=== PATIENT | male | born 1970 | race Caucasian/White ===

== ENCOUNTER → 2018-02-08 16:40 | Outpatient (CLI) | payer OTHER, MEDICAID, SELFPAY ==
--- NOTE | 2018-02-08 16:44 | DI.RAD.S_ITS ---
PROCEDURE: XR FINGER LT MIN 2V INDICATIONS: Injury to 3rd finger L hand 3 months ago/pain MCP-PIP TECHNIQUE: AP hand, 2 views of the third finger(s) acquired. COMPARISON: None. FINDINGS: Bones: There is a slightly subluxed appearance of the third DIP joint. No definitive fracture is identified. Soft tissues: No suspicious soft tissue calcifications. IMPRESSION: Slightly subluxed third DIP joint. No visualized acute fracture or dislocation. However, if clinical concern and/or pain persist, short interval imaging followup in 7-10 days is recommended, as occult injury cannot be definitively excluded. Dictated by: Carmen Askew M.D. on 02/08/2018 at 17:15 Approved by: Carmen Askew M.D. on 02/08/2018 at 17:16
== END ==
PROVIDERS: PCP Physician Assistant; Visit Provider Physician Assistant
DX: M79.645 Pain in left finger(s) (principal); S69.90XA Unspecified injury of unspecified wrist, hand and finger(s), initial encounter
CPT/HCPCS: 73140

== ENCOUNTER 2019-02-06 17:48 | Emergency (ER) | payer OTHER, MEDICAID, SELFPAY ==
[2019-02-06 18:05] VITALS: BP 119/77; PULSE 68; RESP 15; TEMP 37.1; O2SAT 100; BMI 21.7
[2019-02-06 19:07] VITALS: BP 118/79; PULSE 59; RESP 10; O2SAT 100
[2019-02-06 19:52] LABS: Add Manual Diff / Slide Review NO; Basophils Absolute Auto 0 /uL (0-100); Basophils Percent Auto 0.5 % (0-2); Eosinophils Absolute Auto 300 /uL (0-450); Eosinophils Percent Auto 4.2 % (2-4); Hematocrit 42.4 % (41-53); Lymphocytes Absolute Auto 2800 /uL (1100-4500); Lymphocytes Percent Auto 45.1 % (25-40); Mean Corpuscular HGB Conc 35.3 % (30-36); Mean Corpuscular Hemoglobin 31.7 PG (26-34); Mean Corpuscular Volume 89.8 fL (80-100); Monocytes Absolute Auto 600 /uL (0-900); Monocytes Percent Auto 9.5 % (3-14); Neutrophils Absolute Auto 2500 /uL (1500-7000); Neutrophils Percent Auto 40.7 % (50-75); Platelet Count 199 X10^3/uL (150-400); Red Blood Cell Count 4.72 X10^6/uL (4.5-5.9); Red Cell Distribution Width 13.1 % (11.6-14.8); White Blood Cell Count 6.2 X10^3/uL (4.5-11.0)
[2019-02-06 20:00] LABS: Alanine Aminotransferase 15 IU/L (21-72); Albumin 4.3 g/dL (3.5-5.0); Albumin Globulin Ratio 1.3 (1.0-2.8); Alkaline Phosphatase 47 U/L (38-126); Aspartate Aminotransferase 22 IU/L (17-59); BUN Creatinine Ratio 18.9 (6-22); Bilirubin Total 0.5 mg/dL (0.2-1.3); Blood Urea Nitrogen 17 mg/dL (9-20); Calcium 9.1 mg/dL (8.4-10.2); Carbon Dioxide 28 mmol/L (22-32); Chloride 104 mmol/L (98-107); Estimated Glomerular Filt Rate > 60.0 mL/min (>60); Globulin 3.3 g/dL (1.7-4.1); Glucose 88 mg/dL (70-100); HEMOLYSIS < 15 (0-50); Lipase 100 U/L (23-300); Potassium 4.1 mmol/L (3.4-5.1); Sodium 139 mmol/L (137-145); Total Protein 7.6 g/dL (6.3-8.2)
[2019-02-06 20:36] LABS: Bacteria Urine None Seen; RBC Urine None Seen (0-5/HPF)
[2019-02-06 20:41] LABS: Appearance Urine UA CLEAR; Bilirubin Urine UA NEGATIVE (NEGATIVE); Color Urine UA YELLOW; Glucose Urine UA NEGATIVE (Negative); Ketones Urine UA NEGATIVE (NEGATIVE); Leukocyte Esterase Urine UA NEGATIVE (NEGATIVE); Nitrite Urine UA NEGATIVE (Negative); Occult Blood Urine UA NEGATIVE (Negative); Protein Urine UA NEGATIVE (Negative); Specific Gravity Urine UA 1.015 (1.000-1.035)
--- NOTE | 2019-02-06 20:41 | ED.WEAKNESS ---
HPI - Weakness <LAURA Brandt - Last Filed: 02/06/19 21:10> General Chief complaint: Weakness Stated complaint: Ulcers,diabetes,Multiple complaints Time Seen by Provider: 02/06/19 18:14 Source: patient Mode of arrival: Ambulatory Limitations: no limitations History of Present Illness HPI Narrative: The patient is a 48-year-old male current smoker who presents complaining of vague, longstanding medical complaints. He states he has been increasingly tired over the past 6 months. States that when he is carbohydrates, he gets tired. He states this happened yesterday with pizza. He is unable to give a precipitating factor for his emergency department visit other than fatigue, but states that it has not increased over the past few days. He does note emotional stressors at home, including having many dogs and recent separation with his . He denies any nausea vomiting or diarrhea. He denies any chest pain or shortness of breath. He denies any thoughts of hurting himself or anybody else. He denies any concerns about depression. He does state that he is concerned about diabetes as his family members recently diagnosed. He has not followed up with primary care provider. Related Data Allergies Allergy/AdvReac Type Severity Reaction Status Date / Time No Known Allergies Allergy Uncoded 11/09/18 14:54 Review of Systems <LAURA Brandt - Last Filed: 02/06/19 21:10> Review of Systems Narrative: GENERAL: See HPI HEENT: Denies sinus pain, ear pain, sore throat, difficulty swallowing, dizziness. RESPIRATORY: Denies dyspnea, cough, wheezing, hemoptysis, sputum. CARDIOVASCULAR: Denies chest pain, palpitations, orthopnea, edema, GASTROINTESTINAL: Denies nausea, vomiting, abdominal pain, diarrhea, constipation, melena. : Denies dysuria, frequency, incontinence, hematuria, urinary retention. MUSCULOSKELETAL: denies weakness, joint pain, or bony pain SKIN: Denies rash, skin lesions, or other NEUROLOGIC: Denies weakness, headache, numbness, change in speech, confusion, seizures, incoordination. PSYCHIATRIC: No concerning psychosocial issues. 12 point review of systems is negative except for those stated above PFSH <LAURA Brandt - Last Filed: 02/06/19 21:10> Medical History No pertinent past medical history (Resolved) Surgical History No history of previous surgery (Resolved) Family History (Updated 02/05/18 @ 12:52 by Henny Pearce LPN) Mother Cancer Social History Smoking Status: Current every day smoker Tobacco: How many years used: 10 second hand exposure: No alcohol intake: current (a beer or two every couple of months.) substance use type: does not use Family History Mother Cancer Social History Smoking Status: Current every day smoker Tobacco: How many years used: 10 second hand exposure: No alcohol intake: current (a beer or two every couple of months.) substance use type: does not use Exam <RYAN Brandt - Last Filed: 02/06/19 21:10> Narrative Exam Narrative: GENERAL: Thin female in no acute distress HEAD: Atraumatic. Normocephalic. No temporal or scalp tenderness. EYES: Pupils equal round and reactive. Extraocular motions intact. No scleral icterus. No injection or drainage. ENT: Nose without bleeding, purulent drainage or septal hematoma. Throat without erythema, tonsillar hypertrophy or exudate. Uvula midline. Airway patent. NECK: Trachea midline. No JVD or lymphadenopathy. Supple, nontender, no meningeal signs. CARDIOVASCULAR: Regular rate and rhythm without murmurs, gallops, or rubs. RESPIRATORY: Clear to auscultation. Breath sounds equal bilaterally. No wheezes, rales, or rhonchi. No cough. No increased respiratory effort. No accessory muscle use. GASTROINTESTINAL: Abdomen soft, non-tender, nondistended. No hepato-splenomegaly, or palpable masses. No guarding. Active bowel sounds all 4 quadrants. EXTREMITIES: No clubbing, cyanosis, or edema. No joint tenderness, effusion, or edema noted. BACK: Nontender without deformity or crepitance. No flank tenderness. NEURO: AOx3. Flat affect. SKIN: No rash or erythema. Initial Vital Signs Initial Vital Signs: Vital Signs Temperature 98.7 F 02/06/19 18:05 Pulse Rate 68 02/06/19 18:05 Respiratory Rate 15 02/06/19 18:05 Blood Pressure 119/77 02/06/19 18:05 Pulse Oximetry 100 02/06/19 18:05 <Scott Rosales DO - Last Filed: 02/06/19 21:50> Initial Vital Signs Initial Vital Signs: Vital Signs Temperature 98.7 F 02/06/19 18:05 Pulse Rate 68 02/06/19 18:05 Respiratory Rate 15 02/06/19 18:05 Blood Pressure 119/77 02/06/19 18:05 Pulse Oximetry 100 02/06/19 18:05 Course <DONNIE Brandt-BC - Last Filed: 02/06/19 21:10> Orders Ordered: ED Orders 02/06/19 19:45 Complete Blood Count AUTO DIFF Stat Comprehensive Metabolic Panel Stat Lipase Stat 02/06/19 20:30 Urinalysis and Microscopic Stat Urine Drug Screen, Rapid Stat Vital Signs Vital signs: Vital Signs - 8 hr 02/06/19 18:05 02/06/19 19:07 02/06/19 21:00 Temperature 98.7 F Pulse Rate 68 59 L 67 Respiratory Rate 15 10 L Blood Pressure 119/77 Blood Pressure [Left Arm] 118/79 115/74 Pulse Oximetry 100 100 99 02/06/19 21:33 Temperature Pulse Rate 58 L Respiratory Rate 14 Blood Pressure 103/80 Blood Pressure [Left Arm] Pulse Oximetry 98 <Scott Rosales DO - Last Filed: 02/06/19 21:50> Orders Ordered: ED Orders 02/06/19 19:45 Complete Blood Count AUTO DIFF Stat Comprehensive Metabolic Panel Stat Lipase Stat 02/06/19 20:30 Urinalysis and Microscopic Stat Urine Drug Screen, Rapid Stat Vital Signs Vital signs: Vital Signs - 8 hr 02/06/19 18:05 02/06/19 19:07 02/06/19 21:00 Temperature 98.7 F Pulse Rate 68 59 L 67 Respiratory Rate 15 10 L Blood Pressure 119/77 Blood Pressure [Left Arm] 118/79 115/74 Pulse Oximetry 100 100 99 02/06/19 21:33 Temperature Pulse Rate 58 L Respiratory Rate 14 Blood Pressure 103/80 Blood Pressure [Left Arm] Pulse Oximetry 98 MDM - Weakness <DONNIE Brandt-BC - Last Filed: 02/06/19 21:10> Lab Data Result diagrams: 02/06/19 19:45 02/06/19 19:45 Labs: Lab Results 02/06/19 02/06/19 02/06/19 Range/Units 19:45 19:45 20:30 WBC 6.2 (4.5-11.0) X10^3/uL RBC 4.72 (4.5-5.9) X10^6/uL Hgb 15.0 (13.5-17.5) g/dL Hct 42.4 (41-53) % MCV 89.8 (80-100) fL MCH 31.7 (26-34) PG MCHC 35.3 (30-36) % RDW 13.1 (11.6-14.8) % Plt Count 199 (150-400) X10^3/uL Neut % (Auto) 40.7 L (50-75) % Lymph % (Auto) 45.1 H (25-40) % [place] % (Auto) 9.5 (3-14) % Eos % (Auto) 4.2 H (2-4) % Baso % (Auto) 0.5 (0-2) % Neut # (Auto) 2500 (7997-5314) /uL Lymph # (Auto) 2800 (6962-0579) /uL [place] # (Auto) 600 (0-900) /uL Eos # (Auto) 300 (0-450) /uL Baso # (Auto) 0 (0-100) /uL Sodium 139 (137-145) mmol/L Potassium 4.1 (3.4-5.1) mmol/L Chloride 104 (98-107) mmol/L Carbon Dioxide 28 (22-32) mmol/L BUN 17 (9-20) mg/dL Creatinine 0.90 (0.66-1.25) mg/dL Estimated GFR > 60.0 (>60) mL/min BUN/Creatinine Ratio 18.9 (6-22) Glucose 88 (70-100) mg/dL Calcium 9.1 (8.4-10.2) mg/dL Total Bilirubin 0.5 (0.2-1.3) mg/dL AST 22 (17-59) IU/L ALT 15 L (21-72) IU/L Alkaline Phosphatase 47 (38-126) U/L Total Protein 7.6 (6.3-8.2) g/dL Albumin 4.3 (3.5-5.0) g/dL Globulin 3.3 (1.7-4.1) g/dL Albumin/Globulin Ratio 1.3 (1.0-2.8) Lipase 100 (23-300) U/L Urine Color Yellow Urine Appearance Clear Urine pH 7.0 (4.5-8.0) Ur Specific [place] 1.015 (1.000-1.035) Urine Protein Negative (Negative) Urine Glucose (UA) Negative (Negative) g/dL Urine Ketones Negative (NEGATIVE) Urine Occult Blood Negative (Negative) Urine Nitrate Negative (Negative) Urine Bilirubin Negative (NEGATIVE) Urine Urobilinogen 1.0 (0.2) E.U./dL Ur Leukocyte Esterase Negative (NEGATIVE) Urine RBC None seen (0-5/HPF) Urine WBC 0-1/hpf (0-5/HPF) Ur Squamous Epith Cells 0-1 /hpf (0-5/HPF) Amorphous Sediment 1+ Urine Bacteria None seen (None) Urine Mucus 2+ H (Negative) Ur Culture Indicated? Cult not indicated Urine Opiates Screen (Negative) Ur Oxycodone Screen (Negative) Urine Methadone Screen (Negative) Ur Barbiturates Screen (Negative) U Tricyclic Antidepress (Negative) Ur Phencyclidine Scrn (Negative) Ur Amphetamines Screen (Negative) U Methamphetamines Scrn (Negative) Ur MDMA Scrn (Ecstasy) (Negative) U Benzodiazepines Scrn (Negative) Urine Cocaine Screen (Negative) U Marijuana (THC) Screen (Negative) 02/06/19 Range/Units 20:30 WBC (4.5-11.0) X10^3/uL RBC (4.5-5.9) X10^6/uL Hgb (13.5-17.5) g/dL Hct (41-53) % MCV (80-100) fL MCH (26-34) PG MCHC (30-36) % RDW (11.6-14.8) % Plt Count (150-400) X10^3/uL Neut % (Auto) (50-75) % Lymph % (Auto) (25-40) % [place] % (Auto) (3-14) % Eos % (Auto) (2-4) % Baso % (Auto) (0-2) % Neut # (Auto) (5519-0413) /uL Lymph # (Auto) (5066-0721) /uL [place] # (Auto) (0-900) /uL Eos # (Auto) (0-450) /uL Baso # (Auto) (0-100) /uL Sodium (137-145) mmol/L Potassium (3.4-5.1) mmol/L Chloride (98-107) mmol/L Carbon Dioxide (22-32) mmol/L BUN (9-20) mg/dL Creatinine (0.66-1.25) mg/dL Estimated GFR (>60) mL/min BUN/Creatinine Ratio (6-22) Glucose (70-100) mg/dL Calcium (8.4-10.2) mg/dL Total Bilirubin (0.2-1.3) mg/dL AST (17-59) IU/L ALT (21-72) IU/L Alkaline Phosphatase (38-126) U/L Total Protein (6.3-8.2) g/dL Albumin (3.5-5.0) g/dL Globulin (1.7-4.1) g/dL Albumin/Globulin Ratio (1.0-2.8) Lipase (23-300) U/L Urine Color Urine Appearance Urine pH (4.5-8.0) Ur Specific [place] (1.000-1.035) Urine Protein (Negative) Urine Glucose (UA) (Negative) g/dL Urine Ketones (NEGATIVE) Urine Occult Blood (Negative) Urine Nitrate (Negative) Urine Bilirubin (NEGATIVE) Urine Urobilinogen (0.2) E.U./dL Ur Leukocyte Esterase (NEGATIVE) Urine RBC (0-5/HPF) Urine WBC (0-5/HPF) Ur Squamous Epith Cells (0-5/HPF) Amorphous Sediment Urine Bacteria (None) Urine Mucus (Negative) Ur Culture Indicated? Urine Opiates Screen Negative (Negative) Ur Oxycodone Screen Negative (Negative) Urine Methadone Screen Negative (Negative) Ur Barbiturates Screen Negative (Negative) U Tricyclic Antidepress Negative (Negative) Ur Phencyclidine Scrn Negative (Negative) Ur Amphetamines Screen Negative (Negative) U Methamphetamines Scrn Negative (Negative) Ur MDMA Scrn (Ecstasy) Negative (Negative) U Benzodiazepines Scrn Negative (Negative) Urine Cocaine Screen Negative (Negative) U Marijuana (THC) Screen Positive H (Negative) MDM Narrative Medical decision making narrative: The patient is a 48-year-old male who presents with a chief complaint of ongoing fatigue x6 months. He has stable vital signs, is afebrile, has grossly normal CBC CMP and lipase. Urinalysis is normal in his drug screen illustrate marijuana use. The patient denies any thoughts of hurting himself or anybody else and denies any concerns about depression, however given his recent social stressors of with his I am concerned about this. I discussed that fatigue is often a sign of depression, and when asked about depression the patient answered regarding his fatigue after eating pizza. He avoided questions about depression this several times. Encouraged him to follow up with his PCP in the next few days. I discussed at length coming back to the ER for any acute concerns such as chest pain, shortness of breath, concern of heart attack or stroke, wanting to hurt himself or anybody else. I did contact her ER social insurance adviser, however she is leaving the department and is unable to do evaluation. <Scott Rosales, DO - Last Filed: 02/06/19 21:50> Lab Data Labs: Lab Results 02/06/19 02/06/19 02/06/19 Range/Units 19:45 19:45 20:30 WBC 6.2 (4.5-11.0) X10^3/uL RBC 4.72 (4.5-5.9) X10^6/uL Hgb 15.0 (13.5-17.5) g/dL Hct 42.4 (41-53) % MCV 89.8 (80-100) fL MCH 31.7 (26-34) PG MCHC 35.3 (30-36) % RDW 13.1 (11.6-14.8) % Plt Count 199 (150-400) X10^3/uL Neut % (Auto) 40.7 L (50-75) % Lymph % (Auto) 45.1 H (25-40) % [place] % (Auto) 9.5 (3-14) % Eos % (Auto) 4.2 H (2-4) % Baso % (Auto) 0.5 (0-2) % Neut # (Auto) 2500 (8137-3148) /uL Lymph # (Auto) 2800 (0254-2203) /uL [place] # (Auto) 600 (0-900) /uL Eos # (Auto) 300 (0-450) /uL Baso # (Auto) 0 (0-100) /uL Sodium 139 (137-145) mmol/L Potassium 4.1 (3.4-5.1) mmol/L Chloride 104 (98-107) mmol/L Carbon Dioxide 28 (22-32) mmol/L BUN 17 (9-20) mg/dL Creatinine 0.90 (0.66-1.25) mg/dL Estimated GFR > 60.0 (>60) mL/min BUN/Creatinine Ratio 18.9 (6-22) Glucose 88 (70-100) mg/dL Calcium 9.1 (8.4-10.2) mg/dL Total Bilirubin 0.5 (0.2-1.3) mg/dL AST 22 (17-59) IU/L ALT 15 L (21-72) IU/L Alkaline Phosphatase 47 (38-126) U/L Total Protein 7.6 (6.3-8.2) g/dL Albumin 4.3 (3.5-5.0) g/dL Globulin 3.3 (1.7-4.1) g/dL Albumin/Globulin Ratio 1.3 (1.0-2.8) Lipase 100 (23-300) U/L Urine Color Yellow Urine Appearance Clear Urine pH 7.0 (4.5-8.0) Ur Specific [place] 1.015 (1.000-1.035) Urine Protein Negative (Negative) Urine Glucose (UA) Negative (Negative) g/dL Urine Ketones Negative (NEGATIVE) Urine Occult Blood Negative (Negative) Urine Nitrate Negative (Negative) Urine Bilirubin Negative (NEGATIVE) Urine Urobilinogen 1.0 (0.2) E.U./dL Ur Leukocyte Esterase Negative (NEGATIVE) Urine RBC None seen (0-5/HPF) Urine WBC 0-1/hpf (0-5/HPF) Ur Squamous Epith Cells 0-1 /hpf (0-5/HPF) Amorphous Sediment 1+ Urine Bacteria None seen (None) Urine Mucus 2+ H (Negative) Ur Culture Indicated? Cult not indicated Urine Opiates Screen (Negative) Ur Oxycodone Screen (Negative) Urine Methadone Screen (Negative) Ur Barbiturates Screen (Negative) U Tricyclic Antidepress (Negative) Ur Phencyclidine Scrn (Negative) Ur Amphetamines Screen (Negative) U Methamphetamines Scrn (Negative) Ur MDMA Scrn (Ecstasy) (Negative) U Benzodiazepines Scrn (Negative) Urine Cocaine Screen (Negative) U Marijuana (THC) Screen (Negative) 02/06/19 Range/Units 20:30 WBC (4.5-11.0) X10^3/uL RBC (4.5-5.9) X10^6/uL Hgb (13.5-17.5) g/dL Hct (41-53) % MCV (80-100) fL MCH (26-34) PG MCHC (30-36) % RDW (11.6-14.8) % Plt Count (150-400) X10^3/uL Neut % (Auto) (50-75) % Lymph % (Auto) (25-40) % [place] % (Auto) (3-14) % Eos % (Auto) (2-4) % Baso % (Auto) (0-2) % Neut # (Auto) (3213-9160) /uL Lymph # (Auto) (7037-8666) /uL [place] # (Auto) (0-900) /uL Eos # (Auto) (0-450) /uL Baso # (Auto) (0-100) /uL Sodium (137-145) mmol/L Potassium (3.4-5.1) mmol/L Chloride (98-107) mmol/L Carbon Dioxide (22-32) mmol/L BUN (9-20) mg/dL Creatinine (0.66-1.25) mg/dL Estimated GFR (>60) mL/min BUN/Creatinine Ratio (6-22) Glucose (70-100) mg/dL Calcium (8.4-10.2) mg/dL Total Bilirubin (0.2-1.3) mg/dL AST (17-59) IU/L ALT (21-72) IU/L Alkaline Phosphatase (38-126) U/L Total Protein (6.3-8.2) g/dL Albumin (3.5-5.0) g/dL Globulin (1.7-4.1) g/dL Albumin/Globulin Ratio (1.0-2.8) Lipase (23-300) U/L Urine Color Urine Appearance Urine pH (4.5-8.0) Ur Specific [place] (1.000-1.035) Urine Protein (Negative) Urine Glucose (UA) (Negative) g/dL Urine Ketones (NEGATIVE) Urine Occult Blood (Negative) Urine Nitrate (Negative) Urine Bilirubin (NEGATIVE) Urine Urobilinogen (0.2) E.U./dL Ur Leukocyte Esterase (NEGATIVE) Urine RBC (0-5/HPF) Urine WBC (0-5/HPF) Ur Squamous Epith Cells (0-5/HPF) Amorphous Sediment Urine Bacteria (None) Urine Mucus (Negative) Ur Culture Indicated? Urine Opiates Screen Negative (Negative) Ur Oxycodone Screen Negative (Negative) Urine Methadone Screen Negative (Negative) Ur Barbiturates Screen Negative (Negative) U Tricyclic Antidepress Negative (Negative) Ur Phencyclidine Scrn Negative (Negative) Ur Amphetamines Screen Negative (Negative) U Methamphetamines Scrn Negative (Negative) Ur MDMA Scrn (Ecstasy) Negative (Negative) U Benzodiazepines Scrn Negative (Negative) Urine Cocaine Screen Negative (Negative) U Marijuana (THC) Screen Positive H (Negative) Discharge Plan Departure Patient Disposition: Home Clinical Impression: Fatigue Qualifiers: Fatigue type: unspecified Qualified Code(s): R53.83 - Other fatigue Discharge Date/Time: 02/06/19 21:36 Instructions: DI for Fatigue Activity Restrictions/Additional Instructions: Your preliminary lab work today came back well Please come back to the emergency department for any acute concerns such as chest pain, shortness of breath, concerns of heart attack or stroke, wanting to hurt herself or anybody else Please rest, eat well and take care of yourself. As discussed please follow up with primary care provider in the next few days. Referrals: Bonita Moore PA-C [Primary Care Provider] - <Scott Rosales DO - Last Filed: 02/06/19 21:50> Sign Out Provider Sign Out Attestation: I was available for consultation during this patient's emergency department encounter
[2019-02-06 20:48] LABS: Squamous Epithelial Cell Urine 0-1 /HPF (0-5/HPF); WBC Urine 0-1/HPF (0-5/HPF)
[2019-02-06 20:49] LABS: Amorphous Sediment Urine 1+; Culture Indicated Urine Cult Not Indicated; Mucus Urine 2+ (Negative)
[2019-02-06 20:51] LABS: Urine Amphetamines Negative (Negative); Urine Barbiturates Negative (Negative); Urine Benzodiazepines Negative (Negative); Urine Cocaine Negative (Negative); Urine MDMA Negative (Negative); Urine Methadone Negative (Negative); Urine Methamphetamines Negative (Negative); Urine Morphine/Opi cutoff 2000 Negative (Negative); Urine Oxycodone Negative (Negative); Urine Phencyclidine Negative (Negative); Urine Tetrahydrocannabinol Positive (Negative); Urine Tricyclic Antidepressant Negative (Negative)
[2019-02-06 21:00] VITALS: BP 115/74; PULSE 67; O2SAT 99
[2019-02-06 21:33] VITALS: BP 103/80; PULSE 58; RESP 14; O2SAT 98
== END 2019-02-06 21:36 | disposition home or self-care (01) ==
PROVIDERS: Emergency Medicine; Emergency Provider Nurse Practitioner Family; PCP Physician Assistant
DX: R53.83 Other fatigue (principal)
CPT/HCPCS: 36415; 80053; 80305; 81001; 83690; 85025; 99283

== ENCOUNTER → 2019-03-03 15:12 | Outpatient (CLI) | payer OTHER, MEDICAID, SELFPAY ==
--- NOTE | 2019-03-03 15:14 | DI.RAD.S_ITS ---
PROCEDURE: XR LUMBAR SPINE 2-3V INDICATIONS: low back pain TECHNIQUE: 3 views of the lumbar spine were acquired. COMPARISON: None. FINDINGS: Bones: No fracture or focal osseous destruction. Multilevel degenerative endplate sclerosis and spurring. Diffuse facet arthropathy. Straightening of the normal lordotic curvature. Diffuse mild narrowing of the lumbar disc spaces. Trace anterolisthesis of L3 on L4. Dextrocurvature Soft tissues: Overlying bowel gas pattern is normal. No suspicious soft tissue calcifications. IMPRESSION: Straightening of the normal lordotic curvature. Mild diffuse lumbar spondylosis. Dextrocurvature Dictated by: Justin Hunter M.D. on 03/03/2019 at 17:33 Approved by: Justin Hunter M.D. on 03/03/2019 at 17:34
== END ==
PROVIDERS: PCP Physician Assistant; Visit Provider Nurse Practitioner Family
DX: M54.5 Low back pain (principal); M47.816 Spondylosis without myelopathy or radiculopathy, lumbar region
CPT/HCPCS: 72100

== ENCOUNTER 2019-03-23 14:20 | Outpatient (RCR) | payer OTHER, MEDICAID, SELFPAY ==
--- NOTE | 2019-03-23 18:00 | PT.OIE ---
Current Diagnoses Low back pain (03/23/19) Past Medical History (Last Reviewed 02/06/19 @ 20:58 by RYAN Brandt) No pertinent past medical history (Resolved) Past Surgical History (Last Reviewed 02/06/19 @ 20:58 by RYAN Brandt) No history of previous surgery (Resolved) Visit Care Team Role Provider Type Bonita Moore PA-C Primary Care Provider Advanced Straight Cutter Machine Specialty: Medical Address: [address] [place] [address], [address], [address] Email: [email or web address] GUNNAR Linares Attending Provider Advanced Straight Cutter Machine Specialty: Family Practice Address: [address] [place] [address], [address] Email: [email or web address] Physical Therapy Initial Evaluation PT-OP-A Visit Information Start: 03/23/19 13:06 Freq: Status: Active Protocol: Document 03/23/19 14:36 MB (Rec: 03/23/19 15:04 MB [id number]) Out-Patient Physical Therapy Visit Information Visit Information Visit Type Initial Evaluation Visit Note 1 eval 24 units Visit Start Time 14:36 Visit Stop Time 15:15 Total Visit Minutes 39 Visit Number 1 Number of BLAST FURNACE BLOWER Visits 0 PT-OP-B Current Condition Start: 03/23/19 13:06 Freq: Status: Active Protocol: Document 03/23/19 14:36 MB (Rec: 03/23/19 15:04 MB [id number]) Current Condition History of Current Condition Onset Date 1 year History of Current Condition 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 He has had increasing back pain. 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 He occ has B lateral hip pain. He has been seeing a chiropractor occ . It helps. The pain is 4-5/10 at baseline and gets up to 9/ 10 after working hard all day. He reports occ sharp nerve pain. He reports twisting is difficult. He is currently not working and is leasing his boat. He is sleeping through the night. He sleeps on his side with only one pillow-- under his head. He has pain when he goes to get up. He is rolling OOB. He is concerned about his spinal curvature changes per x-ray. He has been unable to go duck hunting and bike riding d/t pain. This has been for many months. Pt reports pain with sitting. Prior Treatments and Tests X-ray 03/03/19 revealed straightening of normal lordotic curvature and dextrocurvature Treatment Goals Patient/Caregiver Goals Decrease pain PT-OP-C Subjective Start: 03/23/19 13:06 Freq: Status: Active Protocol: Document 03/23/19 14:36 MB (Rec: 03/23/19 17:59 MB [id number]) OP-PT Subjective Patient Comments Patient Comments See history of current condition for details on evaluation date. PT-OP-J Posture/Palpation/Skin Start: 03/23/19 13:06 Freq: Status: Active Protocol: Document 03/23/19 14:36 MB (Rec: 03/23/19 17:59 MB [id number]) Posture Evaluation Comments Posture Comments Standing: C7 protrusion, forward head and rounded posture, decreased thoracic and lumbar curvature, mild left thoracic convexity, left iliac crest mildly higher than the right PT-OP-K Range of Motion Start: 03/23/19 13:06 Freq: Status: Active Protocol: Document 03/23/19 14:36 MB (Rec: 03/23/19 18:00 MB [id number]) Lumbar Spine Range of Motion Lumbar Spine Active Comments Standing extension--causes increased LBP L5-S1 middle of spine, cannot reach past neutral. Standing flexion with fingers 3 from floor. PT-OP-M Strength Start: 03/23/19 13:06 Freq: Status: Active Protocol: Document 03/23/19 14:36 MB (Rec: 03/23/19 17:59 MB [id number]) Hip Strength Hip Manual Muscle Testing Left Flexion (L2) 4 Good Abduction 5 Normal Comments Sitting Right Flexion (L2) 5 Normal Abduction 5 Normal Comments Sitting Knee Strength Knee Manual Muscle Testing Left Flexion (S2) 4 Good Extension (L3) 5 Normal Right Flexion (S2) 4 Good Extension (L3) 5 Normal Ankle/Foot Strength Ankle and Foot Manual Muscle Testing Left Dorsiflexion (L4) 5 Normal Plantarflexion (S1) 5 Normal Comments Great toe extension 5/5 Sensation intact to light touch B LEs Right Dorsiflexion (L4) 5 Normal Plantarflexion (S1) 5 Normal Comments Great toe extension 5/5 PT-OP-Q Treatments Start: 03/23/19 13:06 Freq: Status: Active Protocol: Document 03/23/19 14:36 MB (Rec: 03/23/19 17:59 MB [id number]) Therapeutic Exercises Standing Exercises Racquet ball massage Comments Glutes, lateral hip PT-OP-T Assessment and Plan Start: 03/23/19 13:06 Freq: Status: Active Protocol: Document 03/23/19 14:36 MB (Rec: 03/23/19 17:59 MB [id number]) Physical Therapy Assessment Rehab Potential Rehabilitation Potential Good Impairments Impairments Activity Tolerance,Pain, Posture,ROM,Sensation,Soft Tissue Mobility,Strength Goals 4 Supervisor Display Fabrication Goal (LTG) Pt will perform HEP with I including pelvic realignment, ergonomic, postural, flexibility and strengthening exercises by 05/23/19. LTG Duration 8 weeks 3 Supervisor Display Fabrication Goal (LTG) Pt will present with left hip flexor and B knee flexor strength to 5/5 by 05/23/19. LTG Duration 8 weeks 2 Shelter Goal (LTG) Pt will report a 75% improvement in back pain by 05/23/19. LTG Duration 8 weeks 1 Impairment Oswestery LBP score reflects 50% impairment Supervisor Display Fabrication Goal (LTG) Pt will present with an improved Oswestry LBP scale score to reflect no more than 10% impairment by 05/23/19. LTG Duration 8 weeks Assessment Summary Assessment Pt is a 48 y/o male presenting with back pain, spinal changes, pelvic obliquities and LE weakness. He also presents with myofascial changes. 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 He will benefit from PT for pelvic alignment, flexibility, LE and core strengthening, ergonomic and body mechanics training and manual PT. Physical Therapy Plan Frequency and Duration Frequency of Treatment 2x/Week Duration of Treatment 8 weeks Plan of Care Start Date 03/23/19 Plan of Care End Date 05/23/19 Therapeutic Interventions Therapeutic Interventions Balance Training,Gait Training ,Home Exercise Program,Manual Therapy,Neuromuscular Re- education,Patient/Caregiver Education,Self-Care/Home Management,Sensory Integration ,Soft Tissue Mobilization, Taping,Therapeutic Exercises Modalities Cold Pack/Ice Massage,Electric Stimulation,Hot Packs, Ultrasound Next Visit Focus/Plan Next Note Type Treatment Note Next Visit Plan Initiate pelvic realignment and hamstring flexibility exercises, progress to hip flexor stretching
--- NOTE | 2019-03-23 18:01 | PT.OPPOC ---
Current Diagnoses Low back pain (03/23/19) Visit Care Team Role Provider Type Bonita Moore PA-C Primary Care Provider Advanced Vice President And Portfolio Manager Specialty: Medical Address: [address] [place] [address], [address], [place], [address] Email: [email or web address] GUNNAR Linares Attending Provider Advanced Vice President And Portfolio Manager Specialty: Family Practice Address: [address] [place] [address] [place] [address], [address] Email: [email or web address] Plan Of Care PT-OP-T Assessment and Plan Start: 03/23/19 13:06 Freq: Status: Active Protocol: Document 03/23/19 14:36 MB (Rec: 03/23/19 17:59 MB [id number]) Physical Therapy Assessment Rehab Potential Rehabilitation Potential Good Impairments Impairments Activity Tolerance,Pain, Posture,ROM,Sensation,Soft Tissue Mobility,Strength Goals 4 Study Lead Goal (LTG) Pt will perform HEP with I including pelvic realignment, ergonomic, postural, flexibility and strengthening exercises by 05/23/19. LTG Duration 8 weeks 3 Detention Goal (LTG) Pt will present with left hip flexor and B knee flexor strength to 5/5 by 05/23/19. LTG Duration 8 weeks 2 Detention Goal (LTG) Pt will report a 75% improvement in back pain by 05/23/19. LTG Duration 8 weeks 1 Impairment Oswestery LBP score reflects 50% impairment Detention Goal (LTG) Pt will present with an improved Oswestry LBP scale score to reflect no more than 10% impairment by 05/23/19. LTG Duration 8 weeks Assessment Summary Assessment Pt is a 48 y/o male presenting with back pain, spinal changes, pelvic obliquities and LE weakness. He also presents with myofascial changes. 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 He will benefit from PT for pelvic alignment, flexibility, LE and core strengthening, ergonomic and body mechanics training and manual PT. Physical Therapy Plan Frequency and Duration Frequency of Treatment 2x/Week Duration of Treatment 8 weeks Plan of Care Start Date 03/23/19 Plan of Care End Date 05/23/19 Therapeutic Interventions Therapeutic Interventions Balance Training,Gait Training ,Home Exercise Program,Manual Therapy,Neuromuscular Re- education,Patient/Caregiver Education,Self-Care/Home Management,Sensory Integration ,Soft Tissue Mobilization, Taping,Therapeutic Exercises Modalities Cold Pack/Ice Massage,Electric Stimulation,Hot Packs, Ultrasound Next Visit Focus/Plan Next Note Type Treatment Note Next Visit Plan Initiate pelvic realignment and hamstring flexibility exercises, progress to hip flexor stretching Plan of Care Dates Plan of Care Start Date 03/23/19 Plan of Care End Date 05/23/19
--- NOTE | 2019-03-29 09:24 | PT-OP ANOTE ---
Pt did not show for appointment. PT called pt's cell phone and left message including next appointment date and time.
--- NOTE | 2019-03-31 08:00 | PT.OPDS ---
Current Diagnoses Low back pain (03/23/19) Visit Care Team Role Provider Type Bonita Moore PA-C Primary Care Provider Advanced Material Mixer Specialty: Medical Address: [address] [place] [address], [address], [address] Email: [email or web address] GUNNAR Linares Attending Provider Advanced Material Mixer Specialty: Family Practice Address: [address] [place] [address] [place] [address], [address] Email: [email or web address] Visit Number Visit Number 05/26 Discharge Summary PT-OP-B Current Condition Start: 03/23/19 13:06 Freq: Status: Active Protocol: Document 03/23/19 14:36 MB (Rec: 03/23/19 15:04 MB [id number]) Current Condition History of Current Condition Onset Date 1 year History of Current Condition 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 He has had increasing back pain. 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 He occ has B lateral hip pain. He has been seeing a chiropractor occ . It helps. The pain is 4-5/10 at baseline and gets up to 9/ 10 after working hard all day. He reports occ sharp nerve pain. He reports twisting is difficult. He is currently not working and is leasing his boat. He is sleeping through the night. He sleeps on his side with only one pillow-- under his head. He has pain when he goes to get up. He is rolling OOB. He is concerned about his spinal curvature changes per x-ray. He has been unable to go duck hunting and bike riding d/t pain. This has been for many months. Pt reports pain with sitting. Prior Treatments and Tests X-ray 03/03/19 revealed straightening of normal lordotic curvature and dextrocurvature Treatment Goals Patient/Caregiver Goals Decrease pain PT-OP-C Subjective Start: 03/23/19 13:06 Freq: Status: Active Protocol: Document 03/23/19 14:36 MB (Rec: 03/23/19 17:59 MB [id number]) OP-PT Subjective Patient Comments Patient Comments See history of current condition for details on evaluation date. PT-OP-J Posture/Palpation/Skin Start: 03/23/19 13:06 Freq: Status: Active Protocol: Document 03/23/19 14:36 MB (Rec: 03/23/19 17:59 MB [id number]) Posture Evaluation Comments Posture Comments Standing: C7 protrusion, forward head and rounded posture, decreased thoracic and lumbar curvature, mild left thoracic convexity, left iliac crest mildly higher than the right PT-OP-K Range of Motion Start: 03/23/19 13:06 Freq: Status: Active Protocol: Document 03/23/19 14:36 MB (Rec: 03/23/19 18:00 MB [id number]) Lumbar Spine Range of Motion Lumbar Spine Active Comments Standing extension--causes increased LBP L5-S1 middle of spine, cannot reach past neutral. Standing flexion with fingers 3 from floor. PT-OP-M Strength Start: 03/23/19 13:06 Freq: Status: Active Protocol: Document 03/23/19 14:36 MB (Rec: 03/23/19 17:59 MB [id number]) Hip Strength Hip Manual Muscle Testing Left Flexion (L2) 4 Good Abduction 5 Normal Comments Sitting Right Flexion (L2) 5 Normal Abduction 5 Normal Comments Sitting Knee Strength Knee Manual Muscle Testing Left Flexion (S2) 4 Good Extension (L3) 5 Normal Right Flexion (S2) 4 Good Extension (L3) 5 Normal Ankle/Foot Strength Ankle and Foot Manual Muscle Testing Left Dorsiflexion (L4) 5 Normal Plantarflexion (S1) 5 Normal Comments Great toe extension 5/5 Sensation intact to light touch B LEs Right Dorsiflexion (L4) 5 Normal Plantarflexion (S1) 5 Normal Comments Great toe extension 5/5 PT-OP-T Assessment and Plan Start: 03/23/19 13:06 Freq: Status: Active Protocol: Document 03/31/19 07:56 MB (Rec: 03/31/19 08:00 MB [id number]) Physical Therapy Plan Discharge Physical Therapy Discharge Comments This is pt's second no show without returning PT's call left for pt after his no show earlier this week. Given that pt has not shown for two appointments or responded to PT's call, will d/c PT. PT left another message this morning on his cell phone. His home phone number as listed in EMR is no longer working. PT communicated for pt to return to doctor if he would like to con't PT in the future .
== END 2019-04-01 09:49 ==
LOC: PHYS 14:20
PROVIDERS: PCP Physician Assistant; Visit Provider Nurse Practitioner Family
DX: M54.5 Low back pain (principal)
CPT/HCPCS: 97161

== ENCOUNTER 2019-10-07 14:34 | Emergency (ER) | payer OTHER, MEDICAID, SELFPAY ==
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
[2019-10-07 14:50] VITALS: BP 124/74; PULSE 95; RESP 18; TEMP 36.8; O2SAT 98; BMI 21.7
[2019-10-07] MEDS: IBUPROFEN 400 MG TABLET 800 MG PO (15:07)
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
== END 2019-10-07 16:01 | disposition home or self-care (01) ==
PROVIDERS: Emergency Provider Nurse Practitioner Family; PCP Physician Assistant
DX: M25.531 Pain in right wrist (principal); V86.56XA Driver of dirt bike or motor/cross bike injured in nontraffic accident, initial encounter
CPT/HCPCS: 73110; 99283

== ENCOUNTER → 2020-04-11 12:11 | Outpatient (CLI) | payer OTHER, MEDICAID, SELFPAY ==
[2020-04-11 12:59] LABS: Bacteria Urine None Seen; RBC Urine None Seen (0-5/HPF)
[2020-04-11 13:17] LABS: Hematocrit 41.6 % (41-53); Hemoglobin 14.3 g/dL (13.5-17.5); Mean Corpuscular HGB Conc 34.2 % (30-36); Mean Corpuscular Hemoglobin 31.4 PG (26-34); Mean Corpuscular Volume 91.7 fL (80-100); Platelet Count 184 X10^3/uL (150-400); Red Blood Cell Count 4.54 X10^6/uL (4.5-5.9); Red Cell Distribution Width 12.7 % (11.6-14.8)
[2020-04-11 13:19] LABS: Appearance Urine UA CLEAR; Bilirubin Urine UA NEGATIVE (NEGATIVE); Color Urine UA YELLOW; Glucose Urine UA NEGATIVE (Negative); Ketones Urine UA NEGATIVE (NEGATIVE); Leukocyte Esterase Urine UA NEGATIVE (NEGATIVE); Nitrite Urine UA NEGATIVE (Negative); Occult Blood Urine UA NEGATIVE (Negative); Protein Urine UA NEGATIVE (Negative); Urobilinogen Urine UA 0.2 E.U./dL (0.2)
[2020-04-11 13:32] LABS: Amorphous Sediment Urine 2+; Culture Indicated Urine Cult Not Indicated; Mucus Urine 2+ (Negative); Squamous Epithelial Cell Urine 0-1 /HPF (0-5/HPF); WBC Urine 0-1/HPF (0-5/HPF)
[2020-04-11 13:48] LABS: Alanine Aminotransferase 13 IU/L (<50); Albumin 4.5 g/dL (3.5-5.0); Albumin Globulin Ratio 1.5 (1.0-2.8); Alkaline Phosphatase 53 U/L (38-126); Aspartate Aminotransferase 22 IU/L (17-59); BUN Creatinine Ratio 13.6 (6-22); Bilirubin Total 0.6 mg/dL (0.2-1.3); Blood Urea Nitrogen 11 mg/dL (9-20); Calcium 9.4 mg/dL (8.4-10.2); Carbon Dioxide 32 mmol/L (22-32); Chloride 103 mmol/L (98-107); Estimated Glomerular Filt Rate > 60.0 mL/min (>60); Glucose 89 mg/dL (70-100); HEMOLYSIS < 15 (0-50); Potassium 4.4 mmol/L (3.4-5.1); Sodium 139 mmol/L (137-145); Total Protein 7.5 g/dL (6.3-8.2)
[2020-04-18 11:43] LABS: Urea Breath Test >18YRS Negative
== END ==
PROVIDERS: PCP Family Medicine; Referring Provider Nurse Practitioner Family; Visit Provider Nurse Practitioner Family
DX: R10.9 Unspecified abdominal pain (principal); Z00.00 Encounter for general adult medical examination without abnormal findings
CPT/HCPCS: 36415; 80053; 81001; 83013; 85027

== ENCOUNTER 2020-08-29 14:37 | Emergency (ER) | payer OTHER, MEDICAID, SELFPAY ==
[2020-08-29 14:46] VITALS: BP 110/63; PULSE 84; RESP 16; TEMP 36.9; O2SAT 99
[2020-08-29] MEDS: KETOROLAC 60 MG/2 ML VIAL 30 MG IM (14:58)
[2020-08-29] MEDS: ACETAMINOPHEN 325 MG TABLET 975 MG PO (14:58)
== END 2020-08-29 16:27 | disposition left against medical advice (07) ==
PROVIDERS: Emergency Provider Emergency Medicine; PCP Family Medicine
DX: K08.89 Other specified disorders of teeth and supporting structures (principal)
CPT/HCPCS: 96372; 99283; J1885

== ENCOUNTER → 2023-12-24 16:10 | Outpatient (CLI) | payer OTHER, MEDICAID, SELFPAY ==
[2023-12-24 17:32] LABS: Alanine Aminotransferase 15 IU/L (<50); Albumin 4.5 g/dL (3.5-5.0); Albumin Globulin Ratio 1.7 (1.0-2.8); Alkaline Phosphatase 42 U/L (38-126); Aspartate Aminotransferase 34 IU/L (17-59); BUN Creatinine Ratio 10.2 (6-22); Bilirubin Total 0.7 mg/dL (0.2-1.3); Blood Urea Nitrogen 10 mg/dL (9-20); Carbon Dioxide 28 mmol/L (22-32); Chloride 104 mmol/L (98-107); Cholesterol 181 mg/dL (140-199); Estimated Glomerular Filt Rate > 60 mL/min (>60); Globulin 2.7 g/dL (1.7-4.1); Glucose 86 mg/dL (70-100); HDL Cholesterol 36 mg/dL (40-60); HEMOLYSIS < 15 (0-50); LDL Cholesterol Calculated 126 mg/dL (<100); Sodium 138 mmol/L (137-145); Total Protein 7.2 g/dL (6.3-8.2); Triglycerides 96 mg/dL (35-150)
[2023-12-24 17:53] LABS: Add Manual Diff / Slide Review NO; Basophils Absolute Auto 0 /uL (0-100); Basophils Percent Auto 0.1 % (0-2); Eosinophils Absolute Auto 100 /uL (0-450); Eosinophils Percent Auto 1.6 % (2-4); Hematocrit 44.3 % (41-53); Hemoglobin 15.3 g/dL (13.5-17.5); Lymphocytes Absolute Auto 2300 /uL (1100-4500); Lymphocytes Percent Auto 35.6 % (25-40); Mean Corpuscular HGB Conc 34.6 % (30-36); Mean Corpuscular Hemoglobin 31.7 PG (26-34); Mean Corpuscular Volume 91.8 fL (80-100); Monocytes Absolute Auto 600 /uL (0-900); Neutrophils Absolute Auto 3400 /uL (1500-7000); Neutrophils Percent Auto 53.7 % (50-75); Platelet Count 195 X10^3/uL (150-400); Red Blood Cell Count 4.82 X10^6/uL (4.5-5.9); Red Cell Distribution Width 12.7 % (11.6-14.8); White Blood Cell Count 6.4 X10^3/uL (4.5-11.0)
[2023-12-24 18:05] LABS: Prostate Specific Antigen 1.48 ng/mL (0.10-4.00)
[2023-12-24 18:35] LABS: Erythrocyte Sedimentation Rate 1 MM/HR (0-15)
[2023-12-28 21:35] LABS: 18 kD IgG Band Absent (.); 23 kD IgG Band Absent (.); 28 kD IgG Band Absent (.); 30 kD IgG Band Absent (.); 39 kD IgG Band Absent (.); 41 kD IgG Bands Absent (.); 45 kD IgG Band Absent (.); 58 kD IgG Band Present (.); 66 kD IgG Band Absent (.); IgG P93 AB Absent (.); IgM P23 AB Absent (.); IgM P39 AB Absent (.); IgM P41 AB Absent (.); Lyme IgG Line Blot Interpretat Negative (.); Lyme IgM Line Blot Interpretat Negative (.)
[2023-12-31 08:10] LABS: Percent Free Testosterone 2.96 % (1.50-4.20); Testosterone Free 23.39 ng/dL (5.00-21.00); Testosterone Total 790.1 ng/dL (264.0-916.0)
== END ==
PROVIDERS: Physician Assistant; PCP Family Medicine; Referring Provider Family Medicine; Visit Provider Family Medicine
DX: Z00.00 Encounter for general adult medical examination without abnormal findings (principal); R79.89 Other specified abnormal findings of blood chemistry; W57.XXXA Bitten or stung by nonvenomous insect and other nonvenomous arthropods, initial encounter; B35.1 Tinea unguium
CPT/HCPCS: 36415; 80053; 80061; 84153; 84402; 84403; 85025; 85651; 86617

== ENCOUNTER 2024-08-29 15:07 | Emergency (ER) | payer OTHER, SELFPAY ==
[2024-08-29 15:26] VITALS: BP 126/74; PULSE 84; RESP 18; TEMP 36.8; O2SAT 97; BMI 20.9
--- NOTE | 2024-08-29 16:34 | DI.RAD.S_ITS ---
PROCEDURE: XR LUMBAR SPINE 2-3V INDICATIONS: back pain TECHNIQUE: 3 views of the lumbar spine were acquired. COMPARISON: [facility], , XR LUMBAR SPINE 2-3V, 03/03/2019, 15:13. FINDINGS: Bones: 5 [id number] vertebrae are present. Rightward curvature of the lumbar spine, centered at L3. No vertebral body compression fractures. No suspicious bony lesions. Mild to moderate, multilevel degenerative disc disease, most prominent L5-S1. Lower lumbar facet arthrosis. Soft tissues: Overlying bowel gas pattern is normal. No suspicious soft tissue calcifications. IMPRESSION: No acute bony abnormality. Mild to moderate, multilevel degenerative disc disease and lower lumbar facet arthrosis. Dictated by: Rahul Laguerre M.D. on 08/29/2024 at 16:48 Approved by: Rahul Laguerre M.D. on 08/29/2024 at 16:49
--- NOTE | 2024-08-29 16:34 | DI.RAD.S_ITS ---
PROCEDURE: XR THORACIC SPINE 3V INDICATIONS: back pain TECHNIQUE: 3 views of the thoracic spine were acquired. COMPARISON: None. FINDINGS: Bones: No fractures or dislocations. No suspicious bony lesions. 12 pairs of ribs are noted, and appear intact where visualized. Soft tissues: No paravertebral stripe thickening. IMPRESSION: No acute bony abnormality. Dictated by: Rahul Laguerre M.D. on 08/29/2024 at 16:49 Approved by: Rahul Laguerre M.D. on 08/29/2024 at 16:50
[2024-08-29 17:30] VITALS: BP 91/59; PULSE 74; RESP 18; O2SAT 97
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
== END 2024-08-29 17:30 | disposition home or self-care (01) ==
PROVIDERS: Emergency Provider Student in an Organized Health Care Education/Training Program; PCP Family Medicine
DX: M54.50 Low back pain, unspecified (principal)
CPT/HCPCS: 72072; 72100; 99281; 99283

== ENCOUNTER → 2024-09-29 15:09 | Outpatient (CLI) | payer OTHER, SELFPAY ==
[2024-09-29 15:49] LABS: Add Manual Diff / Slide Review NO; Basophils Absolute Auto 0 /uL (0-100); Basophils Percent Auto 0.3 % (0-2); Eosinophils Absolute Auto 100 /uL (0-450); Eosinophils Percent Auto 1.5 % (2-4); Hematocrit 42.2 % (41-53); Hemoglobin 14.7 g/dL (13.5-17.5); Lymphocytes Absolute Auto 2500 /uL (1100-4500); Lymphocytes Percent Auto 33.6 % (25-40); Mean Corpuscular HGB Conc 34.9 % (30-36); Mean Corpuscular Hemoglobin 31.9 PG (26-34); Mean Corpuscular Volume 91.3 fL (80-100); Monocytes Absolute Auto 700 /uL (0-900); Neutrophils Absolute Auto 4000 /uL (1500-7000); Neutrophils Percent Auto 54.6 % (50-75); Platelet Count 261 X10^3/uL (150-400); Red Blood Cell Count 4.62 X10^6/uL (4.5-5.9); Red Cell Distribution Width 13.4 % (11.6-14.8); White Blood Cell Count 7.3 X10^3/uL (4.5-11.0)
[2024-09-29 16:14] LABS: Erythrocyte Sedimentation Rate 2 MM/HR (0-15)
[2024-09-29 16:19] LABS: Rheumatoid Factor < 8.6 IU/mL (<12.0)
[2024-09-29 16:47] LABS: TSH w/ Reflex to FT4 0.97 uIU/mL (0.47-4.68)
[2024-09-30 23:39] LABS: CCP Antibodies IgG/IgA 9 units (0-19)
[2024-10-01 03:09] LABS: ANA Screen, IFA Negative (.)
== END ==
PROVIDERS: PCP Family Medicine; Referring Provider Family Medicine; Visit Provider Family Medicine
DX: M13.0 Polyarthritis, unspecified (principal); S40.869A Insect bite (nonvenomous) of unspecified upper arm, initial encounter; W57.XXXA Bitten or stung by nonvenomous insect and other nonvenomous arthropods, initial encounter
CPT/HCPCS: 36415; 84443; 85025; 85651; 86038; 86200; 86430

== ENCOUNTER → 2024-11-24 16:34 | Outpatient (CLI) | payer OTHER, SELFPAY | PROVIDERS: PCP Family Medicine; Referring Provider Chiropractor; Visit Provider Chiropractor | DX: M13.0 Polyarthritis, unspecified (principal) | CPT/HCPCS: 36415; 85651; 86140 ==

== ENCOUNTER 2024-11-24 17:02 | Emergency (ER) | payer OTHER, SELFPAY ==
[2024-11-24 17:06] VITALS: PULSE 97; O2SAT 98
[2024-11-24 17:10] VITALS: BP 149/91; PULSE 99; RESP 16; TEMP 37.3; O2SAT 98; BMI 21.7
[2024-11-24 17:30] VITALS: PULSE 85; O2SAT 97
[2024-11-24 18:00] VITALS: PULSE 76; O2SAT 96
--- NOTE | 2024-11-24 18:01 | ED_ITS ---
HPI - Weakness General Chief complaint: Weakness Stated complaint: Lyme disease Time Seen by Provider: 11/24/24 18:01 Source: patient Mode of arrival: Ambulatory History of Present Illness HPI Narrative: 54-year-old male with a past medical history of Lyme disease diagnosed a proximally 1 year ago comes into the ED from home for evaluation of his chronic Lyme disease symptoms. He states that ever since he was diagnosed with Lyme disease he has been having intermittent persistent generalized fatigue brain fog, states that this is improved after taking steroids, last dose of steroids was proximally 1 month ago by his primary care doctor. He states that he does have a induction machine operator appointment in the next few months but states that due to persistent symptoms decided come into the ED for further evaluation treatment. He denies any other symptoms such as headache visual disturbances chest pain shortness breath fever chills nausea vomiting abdominal pain or any other GI/ symptoms time. Related Data Previous Rx's ?Medication ?Instructions ?Recorded meloxicam 15 mg tablet 15 mg PO DAILY #30 tabs 02/09 prednisone 20 mg tablet 20 mg PO BID 5 days #10 tabs 11/24/24 Allergies Allergy/AdvReac Type Severity Reaction Status Date / Time No Known Drug Allergies Allergy Verified 11/19/24 16:48 Review of Systems Review of Systems Narrative: General: Positive generalized weakness, Denies fever, chills, weight loss HEENT: Denies headache, eye drainage, eye irritation, head trauma, sore throat, voice change Cardiovascular: Denies any chest pain, palpitations, tachycardia Respiratory: Denies any shortness of breath, cough, wheeze, stridor GI/: Denies any abdominal pain, nausea, vomiting, diarrhea, bright red blood per rectum, melanotic stools, urinary frequency, urinary retention, dysuria, hematuria MSK: Denies any joint pain,swelling Skin: Denies any rashes, lesions, discoloration Neuro: Positive brain follow up Denies any headache, lightheadedness, dizziness, fainting, weakness Psych: Denies SI/HI Patient History Medical History Multiple atypical nevi Tick bite of axillary region Carpal tunnel syndrome of right wrist Low testosterone in male Family history of colon cancer Onychomycosis Tobacco use disorder Preventative health care Varicose veins of left lower extremity Abdominal discomfort No pertinent past medical history Surgical History No history of previous surgery Family History Mother Cancer Social History Smoking Status: Current every day smoker Tobacco: How many years used: 10 second hand exposure: No alcohol intake: current substance use type: does not use Smoking Status: Current every day smoker tobacco type: cigarettes alcohol intake frequency: 0-2 drinks per day Exam Narrative Exam Narrative: General: Cooperative, well-developed, not in acute distress HEENT: Normocephalic, atraumatic, PERRLA, normal sclera, eyelids normal Neck: Active full range of motion, atraumatic Chest: Normal to inspection, negative crepitus, no overlying erythema ecchymosis Respiratory: Normal respiratory effort, not in acute respiratory distress, clear to auscultation bilaterally negative cough, wheeze, tachypnea, rhonchi, rales Cardiology: Regular rate rhythm negative gallop, murmur, rubs GI/: No tenderness to palpation, soft, non rigid, normal to inspection, exam deferred MSK: Full active range of motion in all 4 extremities, atraumatic, no tenderness to palpation of any bony prominences Skin: No rashes or lesions noted Neuro: NIH of 0 no focal deficits, strength 5/5 bilaterally upper and lower extremities, patient able to stand bear weight ambulate unassisted here in the emergency department. Alert awake oriented x3, moves all 4 extremities spontaneously, cranial nerves intact, able to answer all questions appropriately follows commands appropriately Psych: Cooperative, negative suicidal or homicidal ideations Initial Vital Signs Initial Vital Signs: Vital Signs Pulse Rate 97 H 11/24/24 17:06 Pulse Oximetry 98 11/24/24 17:06 Course Orders Ordered: Discontinued Medications Prednisone (Prednisone 20 Mg Tablet) 20 mg PO NOW ONE Stop: 11/24/24 18:25 Last Admin: 11/24/24 18:30 Dose: 20 mg Documented By: JULIET Vital Signs Vital signs: Vital Signs - 8 hr 11/24/24 17:06 11/24/24 17:10 11/24/24 17:30 Temperature 99.1 F Pulse Rate 97 H 99 H 85 Respiratory Rate 16 Blood Pressure 149/91 H Pulse Oximetry 98 98 97 Oxygen Delivery Method Room Air 11/24/24 18:00 11/24/24 18:30 Temperature Pulse Rate 76 70 Respiratory Rate Blood Pressure 149/91 H Pulse Oximetry 96 97 Oxygen Delivery Method MDM - Weakness Differential Diagnosis Differential diagnosis: Likely anemia, dehydration and other (Lyme disease,) MDM Narrative Medical decision making narrative: Patient is a 54 year past medical history of Lyme disease proximally 1 year ago, presenting for persistent/chronic Lyme disease he has symptoms which include but not limited to brain fog generalized fatigue muscle aches, states that he has been treated with steroids intermittently in the past which has helped his symptoms/dose of steroids was a proximally 1 month ago by his primary care doctor, states that he does have an appointment with a induction machine operator in a few months but states that he has been having recurrence of his symptoms. He denies any other symptoms such as headache visual disturbances chest pain shortness breath fever chills nausea vomiting abdominal pain or any other GI/ symptoms time. Patient and I had a lengthy conversation regards to additional workup, which include but not limited to blood work CT scan chest x-ray, however he states that this is typical of his normal Lyme disease, and states that he just really wants short course of steroids, I informed him that this is not a great long-term plan however he states that he understands this and just wants to have steroids on hand because it does significantly help his symptoms. I did offer additional workup however he has declines this and states that he has an appointment with his PCP on Thursday and would rather just follow up with them. Patient was given strict return precautions he verbalized understanding of this and agrees to being discharged home with outpatient follow up Discharge Plan Departure Patient Disposition: Home Clinical Impression: Fatigue Activity Restrictions/Additional Instructions: Please follow up with your PCP and our rehumatolgist for your scheduled appointment Prescriptions: New prednisone 20 mg tablet 20 mg PO BID 5 Days Qty: 10 0RF No Action meloxicam 15 mg tablet 15 mg PO DAILY Qty: 30 1RF Referrals: Pradeep Samson DO [Primary Care Provider, [facility]] Stand Alone Forms: Patient Portal/API
[2024-11-24 18:30] VITALS: BP 149/91; PULSE 70; O2SAT 97
== END 2024-11-24 18:35 | disposition home or self-care (01) ==
PROVIDERS: Emergency Provider Student in an Organized Health Care Education/Training Program; PCP Family Medicine
DX: A69.20 Lyme disease, unspecified (principal); R53.83 Other fatigue
CPT/HCPCS: 36415; 85651; 86140; 99283